=== PATIENT | male | born 1990 | race Caucasian/White ===

== ENCOUNTER 2020-09-07 08:49 | Outpatient (CLI) | payer BC, SELFPAY ==
[2020-09-07 09:23] LABS: Alanine Aminotransferase 22 U/L (4-50); Aspartate Amino Transferase 27 U/L (17-59)
== END 2020-09-07 08:50 | disposition home or self-care (01) ==
PROVIDERS: Visit Provider Podiatrist Foot & Ankle Surgery
DX: B35.1 Tinea unguium (principal)
CPT/HCPCS: 36415; 84450; 84460

== ENCOUNTER 2021-02-08 09:10 | Outpatient (CLI) | payer BC, SELFPAY ==
[2021-02-08 09:36] LABS: Alanine Aminotransferase 14 U/L (4-50); Aspartate Amino Transferase 20 U/L (17-59)
== END 2021-02-08 09:11 | disposition home or self-care (01) ==
LOC: ANHLAB 09:11
PROVIDERS: Visit Provider Podiatrist Foot & Ankle Surgery
DX: B35.1 Tinea unguium (principal)
CPT/HCPCS: 36415; 84450; 84460

== ENCOUNTER 2021-05-10 09:08 | Outpatient (CLI) | payer BC, SELFPAY ==
[2021-05-10 09:41] LABS: Alanine Aminotransferase 16 U/L (4-50); Albumin Level 4.6 g/dL (3.5-5.1); Alkaline Phosphatase 53 U/L (38-126); Anion Gap 8 mmol/L (8-16); Aspartate Amino Transferase 20 U/L (17-59); Bilirubin,Total 0.8 mg/dL (0.2-1.3); Blood Urea Nitrogen 13 mg/dL (9-20); Calcium 9.5 mg/dL (8.4-10.2); Carbon Dioxide 29 mmol/L (22-30); Chloride 102 mmol/L (98-107); Cholesterol 129 mg/dL (0-200); Estimated Glomerular Filt Rate > 60; Glucose 155 mg/dL (65-110); HDL Direct 58 mg/dL; Potassium 4.3 mmol/L (3.4-5.0); Sodium 139 mmol/L (137-145); Triglycerides 44 mg/dL (<150)
[2021-05-10 09:52] LABS: LDL Cholesterol Direct 59 mg/dL
[2021-05-10 10:20] LABS: Creatinine Urine 55.6 mg/dL
[2021-05-10 10:44] LABS: MALB Creatinine Ratio < 10.8 mg/g (0-30); Microalbumin Urine Random < 6.0 mg/L (0-16.7)
== END 2021-05-10 09:09 | disposition home or self-care (01) ==
PROVIDERS: Visit Provider Nurse Practitioner Family
DX: E11.9 Type 2 diabetes mellitus without complications (principal)
CPT/HCPCS: 36415; 80053; 80061; 82043

== ENCOUNTER 2021-05-12 17:12 | Emergency (ER) | payer BC, SELFPAY ==
[2021-05-12 17:21] VITALS: BP 124/72; PULSE 71; RESP 18; TEMP 37.1; O2SAT 98
--- NOTE | 2021-05-12 17:22 | ED.SKABFB ---
HPI - Skin/Abscess/Foreign Bdy General Chief complaint: Skin/Abscess/Foreign Body Stated complaint: poison siri Time Seen by Provider: 05/12/21 17:25 Source: patient, RN notes reviewed and old records reviewed Mode of arrival: ambulatory Limitations: no limitations History of Present Illness HPI narrative: 30-year-old male presents to the [facility] with a rash that keeps getting worse to the bilateral arms, groin and bilateral legs. Redness and inflammation noted to the right antecubital area. Patient states he has tried multiple [id number] products with no relief. Patient is a type I diabetic. States that his sugars were high today but normally run below 200. States that he did not have the control for his Dex con to give himself a dose of insulin after drinking a soda while out with his family. Patient states that it started a few days ago after [place]. Related Data Home Medications Medication Instructions Recorded Confirmed blood sugar diagnostic #10 each 08/05/19 12/14/20 blood-glucose sensor #3 each 11/11/19 12/14/20 blood-glucose transmitter #1 each 11/11/19 12/14/20 subcutaneous insulin pump #1 each 11/11/19 12/14/20 blood-glucose meter,continuous #1 each 03/15/20 12/14/20 Allergies Allergy/AdvReac Type Severity Reaction Status Date / Time No Known Allergies Allergy Unknown Verified 05/12/21 17:32 Review of Systems Review of Systems: All systems reviewed & are unremarkable except as noted in HPI and below Constitutional: Constitutional: Reports no additional constitutional complaints, Denies chills and Denies fever(s) Eyes: Eyes: Reports no additional eye complaints ENT: Reports system reviewed and no additional complaints, except as documented Cardiovascular: Cardiovascular: Reports no additional cardiovascular complaints Respiratory: Respiratory: Reports no additional respiratory complaints Gastrointestinal: Gastrointestinal: Reports no additional gastrointestinal complaints Musculoskeletal: Musculoskeletal: Reports no additional musculoskeletal complaints Integumentary/Breasts: Skin/Breast: Reports as per HPI and Reports rash Neurologic: Reports system reviewed and no additional complaints, except as documented Psychiatric: Psychiatric: Reports no additional psychiatric complaints Endocrine: Endocrine: Reports no additional endocrine complaints Allergic/Immunologic: Allergic/Immunologic: Reports no additional allergic/immunologic complaints [facility] Past Medical History Medical History (Updated 05/12/21 @ 17:45 by Bettye Díaz) Type 1 diabetes mellitus with hyperglycemia, with long-term current use of insulin Surgical History Surgical History (Updated 05/12/21 @ 19:48 by Bettey Díaz) No significant past surgical history Family History Family History Grandparent Hypertension Mother Hypertension Social History Social History Smoking status: Never smoker Second hand tobacco smoke exposure: No Alcohol intake: current Comments At the time of my signature, I reviewed and agree with the nursing past medical, surgical, social, and family history. There is no relevant family history pertinent to the patient complaint. Exam Const: General: no acute distress and alert Nutritional Appearance: well nourished Orientation/consciousness: patient oriented x3 Limitations: no limitations HENMT: Head: normal to inspection Ears: external ears normal, TM's normal bilaterally and EAC's normal Eyes: Conjunctivae: conjunctivae normal Pupils: Equal, round and reactive pupils present Neck: Neck: normal visual inspection, no lymphadenopathy and no meningeal signs Chest: Chest palpation & inspection: normal inspection of the chest Resp: Effort & Inspection: normal respiratory effort and no use of accessory muscles Auscultation: clear to auscultation ajit
[2021-05-12 17:39] LABS: Glucose Point of Care 454 mg/dl (65-105)
== END 2021-05-12 18:04 | disposition home or self-care (01) ==
PROVIDERS: Emergency Provider Nurse Practitioner
DX: L25.5 Unspecified contact dermatitis due to plants, except food (principal); E10.9 Type 1 diabetes mellitus without complications; Z79.4 Long term (current) use of insulin
CPT/HCPCS: 82948; 99213; G0463